=== PATIENT | female | born 1965 | race Caucasian/White ===

== ENCOUNTER 2017-10-07 10:10 | Emergency (ER) | payer BC, OTHER ==
[~2017-10-07] VITALS: Ht 165.1 cm; Wt 52.2 kg
[~2017-10-07 10:10] MED LIST: BENICAR20 MG PO; METOPROLOL SUC100 MG PO
[2017-10-07] MEDS ORDERED: SODIUM CHLORIDE 0.9% 1000ML 1,000 ML IV STA (10:36)
[2017-10-07] MEDS ORDERED: MORPHINE SULFATE 4 MG/ML SYR IV STA (10:36)
[2017-10-07] MEDS ORDERED: MORPHINE SULFATE 2 MG/ML SYR ONE (10:43)
[2017-10-07] MEDS ORDERED: ONDANSETRON HCL 4 MG ORAL DISINTEGRATING TAB PO ONE (10:45)
[2017-10-07 10:46] LABS: BASOPHILS % 0.4 % (0.0-1.0); EOSINOPHILS # (AUTO) 0.1 (0.0-0.4); EOSINOPHILS % 0.9 % (0.0-6.0); HEMATOCRIT 38.6 % (34.2-44.1); HEMOGLOBIN 13.3 g/dL (12.0-16.0); LYMPHOCYTES # (AUTO) 1.4 (1.0-3.2); LYMPHOCYTES % 15.7 % (18.0-39.1); MEAN CORPUSCULAR HGB CONC 34.5 g/dL (31-35); MEAN CORPUSCULAR VOLUME 98.7 fL (81-99); MONOCYTES # (AUTO) 0.7 (0.2-0.8); MONOCYTES % 7.6 % (4.4-11.3); NEUTROPHILS # (AUTO) 6.9 (2.1-6.9); NEUTROPHILS % 75.1 % (38.7-80.0); PLATELET COUNT 188 x10e3/uL (140-360); RED BLOOD COUNT 3.91 x10e6/uL (3.6-5.1); RED CELL DISTRIBUTION WIDTH 12.1 % (11.7-14.4)
[2017-10-07 11:07] LABS: ALANINE AMINOTRANSFERASE 42 IU/L (0-55); ALBUMIN 4.2 g/dL (3.5-5.0); ALBUMIN/GLOBULIN RATIO 1.4 (0.8-2.0); ALKALINE PHOSPHATASE 73 IU/L (40-150); BLOOD UREA NITROGEN 14 mg/dL (7-26); BUN/CREATININE RATIO 19 (6-25); CALCIUM 9.7 mg/dL (8.4-10.2); CARBON DIOXIDE 26 mmol/L (22-29); CHLORIDE 106 mmol/L (98-107); CREATININE, SERUM 0.74 mg/dL (0.57-1.11); EST GLOMERULAR FILTRATION RATE > 60 ML/MIN (60-); GLUCOSE 83 mg/dL (74-118); SODIUM 141 mmol/L (136-145)
[2017-10-07] MEDS ORDERED: KETOROLAC TROMETHAMINE 30 MG/ML VIAL IV STA (11:17)
[2017-10-07 11:18] LABS: CLARITY,URINE CLOUDY (CLEAR); COLOR,URINE YELLOW (YELLOW)
[2017-10-07 11:19] LABS: BILIRUBIN,URINE NEGATIVE (NEGATIVE); KETONES,URINE NEGATIVE (NEGATIVE); LEUKOCYTE ESTERASE ,URINE 2+ (NEGATIVE); NITRITE,URINE NEGATIVE (NEGATIVE); PROTEIN,URINE DIPSTICK 1+ (NEGATIVE); URINE UROBILINOGEN 0.2 mg/dL (0.2 - 1)
[2017-10-07 11:25] LABS: BACTERIA,URINE RARE /HPF; EPITHELIAL CELLS,URINE RARE /LPF
--- NOTE | 2017-10-07 11:45 | Diagnostic Imaging Report ---
PROCEDURE: CT ABDOMEN AND PELVIS WITHOUT CONTRAST TECHNIQUE: The abdomen and pelvis were scanned utilizing a multidetector helical scanner from the diaphragm to the lesser trochanter after the oral administration of water. No IV contrast was administered per protocol. Coronal and sagittal multiplanar reformations were obtained. COMPARISON: None. INDICATIONS: RIGHT FLANK PAIN, RADIATES TO RIGHT LOWER ABDOMEN FINDINGS: ABSENCE OF INTRAVENOUS CONTRAST DECREASES SENSITIVITY FOR DETECTION OF FOCAL LESIONS AND VASCULAR PATHOLOGY. LOWER THORAX: Unremarkable. HEPATOBILIARY: No focal hepatic lesions. No biliary ductal dilatation. Gallbladder is unremarkable. SPLEEN: No splenomegaly. PANCREAS: No focal masses or ductal dilatation. ADRENALS: No adrenal nodules. KIDNEYS/URETERS: No renal or ureteral calculi, hydronephrosis, or obstruction. There is mild periureteral stranding surrounding the proximal right ureter (for example, image 35 and series 3, image 67). No hydroureter. No renal contour abnormalities. 1.6 x 1.3 cm fluid density lesion in the left renal sinus at the inferior pole (series 3, image 58), likely representing a parapelvic cyst PELVIC ORGANS/BLADDER: No focal lesions, stone, or significant wall thickening. Uterus is unremarkable. No adnexal masses. PERITONEUM / RETROPERITONEUM: No free air or fluid. LYMPH NODES: No lymphadenopathy. VESSELS: Mild atherosclerotic calcification in the infrarenal abdominal aorta (series 3, image 66). GI TRACT: No bowel dilation or evidence of obstruction. No pericolonic inflammatory changes. Appendix is well identified and normal in caliber. BONES AND SOFT TISSUES: Nonaggressive lytic lesion. Degenerative disc changes with intervertebral disc space narrowing at L5-S1. Soft tissues are grossly unremarkable. IMPRESSION: 1. mild periureteral stranding surrounding the proximal right ureter. No renal, ureteral, or bladder calculi, hydronephrosis, or obstruction. Findings may be secondary to recent passage of stone. Evaluation for pyelonephritis is limited by the lack of intravenous contrast. Correlate with urinalysis. Philip Hoff M.D. Dictated by: Philip Hoff M.D. on 10/07/2017 at 11:47 Electronically approved by: Philip Hoff M.D. on 10/07/2017 at 11:47
[2017-10-07] MEDS ORDERED: CEFTRIAXONE SOD 1 GM VIAL IV SCH (12:00)
[2017-10-07 12:17] VITALS: BP 160/88
== END 2017-10-07 12:48 | disposition home or self-care (01) ==
LOC: ER 10:10
DX: N10 Acute pyelonephritis (principal); R10.31 Right lower quadrant pain; B96.4 Proteus (mirabilis) (morganii) as the cause of diseases classified elsewhere
CPT/HCPCS: 36415; 74176; 80053; 81001; 84702; 85025; 87086; 87186; 99284; J0696; J1885; J2270; J7030